=== PATIENT | male | born 1970 | race African-American/Black ===

== ENCOUNTER 2020-11-06 03:04 | Emergency (ER) | payer OTHER, SELFPAY ==
[~2020-11-06] VITALS: Ht 177.8 cm; Wt 125.0 kg
[2020-11-06] MEDS ORDERED: NITROGLYCERIN 50MG PREMIX 250 ML IV ONE (03:15)
[2020-11-06] MEDS ORDERED: FUROSEMIDE 40MG/4ML VIAL IV ONE (03:15)
[2020-11-06 03:33] LABS: BASOPHILS % 0.9 % (0.0-2.0); CHLORIDE 108 mEq/L (98-107); EOSINOPHILS % 5.9 % (0.0-5.0); HEMATOCRIT. 44.2 % (42.0-52.0); HEMOGLOBIN. 14.8 g/dL (14.0-18.0); LYMPHOCYTES % 29.1 % (20.0-50.0); MEAN CORPUSCULAR HEMOGLOBIN 31.9 pg (28.0-32.0); MEAN CORPUSCULAR VOLUME 95.2 fL (80.0-94.0); MEAN PLATELET VOLUME 10.8 fl (7.4-10.4); MONOCYTES % 7.6 % (2.0-8.0); NEUTROPHILS % 56.5 % (40.0-76.0); PLATELET 190 x1000/uL (130-400); RED BLOOD CELL COUNT 4.65 mill/uL (4.7-6.1); RED CELL DISTRIBUTION WIDTH 13.3 % (11.6-14.6)
[2020-11-06 03:37] LABS: ETHANOL BLOOD < 10 mg/dL
[2020-11-06 04:21] LABS: PARTIAL THROMBOPLASTIN TIME 21.2 sec (23.4-31.0); PROTHROMBIN TIME 10.4 sec (9.6-11.0)
[2020-11-06] MEDS ORDERED: ENOXAPARIN 120MG/0.8ML SYR SUBCUT SCH (06:00)
[2020-11-06] MEDS ORDERED: ONDANSETRON HCL 4MG/2ML INJ IV PRN (11:00)
[2020-11-06] MEDS ORDERED: MAGNESIUM/ALUMINUM HYDROXIDE/SIMETHICONE 30ML UDC PO PRN (11:00)
[2020-11-06] MEDS ORDERED: ZOLPIDEM TARTRATE 5MG TABLET PO PRN (11:00)
[2020-11-06] MEDS ORDERED: ACETAMINOPHEN 325MG TABLET PO PRN ×2 (11:00)
[2020-11-06] MEDS ORDERED: ENOXAPARIN 40MG/0.4ML SYR SUBCUT SCH (11:00)
[2020-11-06] MEDS ORDERED: DIPHENHYDRAMINE 50MG/ML VIAL IV PRN (11:00)
[2020-11-06] MEDS ORDERED: GUAIFENESIN 200MG/10ML SUGAR FREE UDC PO PRN (11:00)
[2020-11-06] MEDS ORDERED: CLONIDINE 0.1MG TABLET PO PRN (11:00)
[2020-11-06] MEDS ORDERED: HYDRALAZINE 20MG/ML VIAL IV PRN (11:30)
[2020-11-06] MEDS: LOSARTAN POTASSIUM 50 MG TABLET PO SCH (13:30)
[2020-11-06] MEDS ORDERED: NITROGLYCERIN OINT 1GM/INCH UDPKT TD SCH (14:00)
[2020-11-06] MEDS: SODIUM CHLORIDE 0.9% INJ 3ML FLUSH IVF SCH (14:00)
[2020-11-06] MEDS: ENOXAPARIN 120MG/0.8ML SYR SUBCUT SCH (18:26)
[2020-11-06] MEDS ORDERED: IBUPROFEN 600MG TABLET PO PRN (18:44)
[2020-11-06] MEDS ORDERED: KETOROLAC 30MG/ML VIAL IV PRN (18:45)
[2020-11-06] MEDS: SPIRONOLACTONE 25MG TABLET PO SCH (19:07)
[2020-11-06] MEDS: CARVEDILOL 12.5MG TABLET PO SCH (22:04)
[2020-11-06] MEDS: FUROSEMIDE 40MG/4ML VIAL IVP SCH (22:05)
[2020-11-07 05:16] LABS: CHLORIDE 106 mEq/L (98-107)
[2020-11-07 05:19] LABS: HEMATOCRIT. 39.8 % (42.0-52.0); HEMOGLOBIN. 13.7 g/dL (14.0-18.0); MEAN CORPUSCULAR HEMOGLOBIN 31.3 pg (28.0-32.0); MEAN CORPUSCULAR VOLUME 91.2 fL (80.0-94.0); MEAN PLATELET VOLUME 10.5 fl (7.4-10.4); PLATELET 156 x1000/uL (130-400); RED BLOOD CELL COUNT 4.37 mill/uL (4.7-6.1)
[2020-11-07 05:26] LABS: PHOSPHORUS 4.5 mg/dL (2.5-4.9)
[2020-11-07] MEDS: SODIUM CHLORIDE 0.9% INJ 3ML FLUSH IVF SCH ×2 (06:00→07:53)
[2020-11-07 06:52] LABS: PLATELET ESTIMATE NORMAL
[2020-11-07] MEDS ORDERED: ASPIRIN 81MG EC TABLET PO SCH (09:00)
[2020-11-07] MEDS ORDERED: LOSARTAN POTASSIUM 25 MG TABLET PO SCH (09:00)
[2020-11-07] MEDS: LISINOPRIL 20MG TABLET PO SCH ×2 (10:05→10:06)
[2020-11-07] MEDS: ENOXAPARIN 120MG/0.8ML SYR SUBCUT SCH (10:05)
[2020-11-07] MEDS: LOSARTAN POTASSIUM 50 MG TABLET PO SCH ×2 (10:05→10:06)
[2020-11-07] MEDS: CARVEDILOL 12.5MG TABLET PO SCH (10:06)
[2020-11-07] MEDS: FUROSEMIDE 40MG/4ML VIAL IVP SCH (10:06)
[2020-11-07] MEDS: SPIRONOLACTONE 25MG TABLET PO SCH (10:06)
[2020-11-07 10:07] VITALS: BP 122/76
== END 2020-11-07 10:40 | disposition left against medical advice (07) ==
LOC: ER 03:04 → EDBEDREQ 05:45 → EDBEDREQTM 05:45 → EDBEDREQSVC 18:05 → CANRESERV 11-07 10:24 → ENRESERV 11-07 10:24 → CANBEDREQ 11-07 10:35 → ER 11-07 10:40
DX: I11.0 Hypertensive heart disease with heart failure (principal); I50.23 Acute on chronic systolic (congestive) heart failure; J96.21 Acute and chronic respiratory failure with hypoxia; E66.01 Morbid (severe) obesity due to excess calories; Z68.39 Body mass index [BMI] 39.0-39.9, adult; F43.21 Adjustment disorder with depressed mood; Z20.828 Contact with and (suspected) exposure to other viral communicable diseases; F12.90 Cannabis use, unspecified, uncomplicated
CPT/HCPCS: 36415; 71045; 80053; 80320; 83735; 83880; 84100; 84484; 85025; 85379; 85610; 85730; 87804; 93005; 93970; 94660; 96365; 96366; 96372; 96375; 99291; C9803; J0360; J1650; J1940; J2405; J3490; U0003; Z7610; G0480